=== PATIENT | male | born 1960 | race Caucasian/White ===

== ENCOUNTER 2018-08-22 10:50 | Inpatient (IN) | payer BC ==
[2018-08-22] MEDS ORDERED: ACETAMINOPHEN 1000 MG/100 ML VIAL (NON FORMULARY) IVPB ONE (11:07)
[2018-08-22] MEDS ORDERED: SODIUM CHLORIDE 0.9% 1000 ML INFUS.BAG IV ONE (11:07)
[2018-08-22 11:14] VITALS: BMI 31.7
--- NOTE | 2018-08-22 11:19 | PDOC ---
Attending Attestation - Resident Resident Name: Raji Jolly - ED Attending Attestation I have performed the following: I have examined & evaluated the patient, The case was reviewed & discussed with the resident, I agree w/resident's findings & plan, Exceptions are as noted - HPI HPI: 08/22/18 12:04 58yo male with lower abd pain. Pt states last bm was this am, but pain since. Pt denies assoc f/c. No assoc n/v. States pain across lower abd that worsened when drinking water today. Pt denies cp/sob. States he had similar pain that lasted a few days about a month ago. Denies blood in stool. Denies urinary complaints. Saw his PMD who recommended he undergo a colonoscopy as an outpt. Pt states pain today while at work. Pt with severe LLQ pain with guarding on exam. Pt appears uncomfortable. States he did have a colonoscopy in the past that was "normal". Pt denies all other complaints. - Physicial Exam PE: 08/22/18 12:07 Gen: aaox3, uncomfortable heart: +s1s2 reg lungs: cta b/l abd: soft, LLQ ttp with voluntary guarding, mild RLQ ttp ext: no c/c/e - Medical Decision Making 08/22/18 11:19 I, Dr. Theresa Heaton, DO, attest that this document has been prepared under my direction and personally reviewed by me in its entirety. I further attest, that it accurately reflects all work, treatment, procedures and medical decision -making performed by me. 08/22/18 12:08 a/p: 58yo male with intermittent LLQ pain - worsened today after drinking water -had a bm today -concern for acute diverticulitis -will send labs, ct abd/pelvis -will give ivf hydration, npo, iv tylenol for pain -will monitor and reassess 08/22/18 12:22 [address]bc [address] imaging 08/22/18 14:01 pt with acute diverticulitis with perf zosyn ordered pt updated microblog sent to [facility] for admission call placed to Dr. Power for sx eval 08/22/18 14:39 resident discussed the case with Dr. Bennett case was discussed with Yoli Mckinney from [facility] who accepts pt to service pt will admitted for iv abx and further eval *DC/Admit/Observation/Transfer Diagnosis at time of Disposition: Acute diverticulitis of intestine - Discharge Dispostion Condition at time of disposition: Guarded Decision to Admit order: Yes - Referrals Referrals: Yudy Sheridan MD [Primary Care Provider] - - Patient Instructions - Post Discharge Activity
[2018-08-22] MEDS ORDERED: ACETAMINOPHEN INJECTION 100 ML IVPB ONE (11:37)
--- NOTE | 2018-08-22 11:42 | PDOC ---
History of Present Illness - General Chief Complaint: Pain Stated Complaint: ABDOMINAL PAIN Time Seen by Provider: 08/22/18 10:57 History Source: Patient Exam Limitations: No Limitations - History of Present Illness Initial Comments: 08/22/18 11:32 58M with PMH of HTN and HLD who presents with 24 hours of abdominal pain. The patient describes a gradual onset, pressure-throbbing, lower abdominal pain without nausea, vomiting, diarrhea, constipation, melena, hematochezia, testicular pain, dysuria, or discharge. He admits to chills and sweats. He denies any relation to food. He states that the pain was tolerable last night, but he felt very thirsty today, drank a "big" glass of water, and immediately had worsening pain so he presented to the ED. Pt admits to having similar symptoms a month ago which he did not see a physician for and self-resolved. Past History - Past Medical History Allergies/Adverse Reactions: Allergies Allergy/AdvReac Type Severity Reaction Status Date / Time No Known Allergies Allergy Verified 09/01/15 16:57 Home Medications: Ambulatory Orders Atorvastatin Ca [Lipitor] 20 mg PO HS 08/22/18 Chlorthalidone [Hygroton -] 25 mg PO DAILY 08/22/18 Valsartan [Diovan] 160 mg PO DAILY 08/22/18 COPD: No HTN: Yes Hypercholesterolemia: Yes - Suicide/Smoking/Psychosocial Hx Smoking History: Never smoked Have you smoked in the past 12 months: Yes Number of Cigarettes Smoked Daily: 10 'Breaking Loose' booklet given: 09/01/15 Hx Alcohol Use: Yes (OCCASIONAL) Drug/Substance Use Hx: No Substance Use Type: None Review of Systems - Review of Systems Able to Perform ROS?: Yes Comments:: 08/22/18 11:42 GENERAL/CONSTITUTIONAL: No fever or chills. No weakness. HEAD, EYES, EARS, NOSE AND THROAT: No change in vision. No ear pain or discharge. No sore throat. CARDIOVASCULAR: No chest pain, palpitations, or lightheadedness. RESPIRATORY: No cough, wheezing, shortness of breath, or hemoptysis. GASTROINTESTINAL: + for abdominal pain. No nausea, vomiting, diarrhea, or constipation. GENITOURINARY: No dysuria, frequency, hematuria, or change in urination. MUSCULOSKELETAL: No joint or muscle swelling or pain. No neck or back pain. SKIN: No rash or lesions. NEUROLOGIC: No headache, numbness, tingling, focal weakness, loss of consciousness, or change in strength/sensation. Is the patient limited Mongolian proficient: No *Physical Exam - Vital Signs Last Vital Signs Temp Pulse Resp BP Pulse Ox 98.7 F 72 16 122/74 97 08/22/18 10:56 08/22/18 10:56 08/22/18 10:56 08/22/18 10:56 08/22/18 10:56 - Physical Exam Comments: 08/22/18 11:43 GENERAL: Well developed, well nourished. Awake and alert. No acute distress. HEENT: Normocephalic, atraumatic. Hearing grossly normal. Moist mucous membranes. PERRLA, EOMI. No conjunctival pallor. Sclera are non-icteric. NECK: Supple. Full ROM. No JVD. CARDIOVASCULAR: Regular rate and rhythm. No murmurs, rubs, or gallops. PULMONARY: No evidence of respiratory distress. Lungs clear to auscultation bilaterally. No wheezing, rales or rhonchi. ABDOMINAL: Soft. TTP over b/l lower quadrants with guarding in LLQ. Non- distended. MUSCULOSKELETAL: Normal range of motion at all joints. No bony deformities or tenderness. EXTREMITIES: No cyanosis. No clubbing. No edema. No calf tenderness or swelling. SKIN: Warm and dry. Normal capillary refill. No rashes. No jaundice. NEUROLOGICAL: Alert, awake, appropriate. Cranial nerves 2-12 grossly intact. Normal speech. Gait is normal without ataxia. PSYCHIATRIC: Cooperative. Good eye contact. Appropriate mood and affect. ED Treatment Course - LABORATORY CBC & Chemistry Diagram: 08/22/18 11:10 08/22/18 11:10 - RADIOLOGY Radiology Studies Ordered: Category Date Time Status ABDOMEN & PELVIS CT WITH CONTR [CT] Stat CT Scan 08/22/18 11:07 Ordered Medical Decision Making - Medical Decision Making 08/22/18 11:50 58M with PMH of HTN and HLD who presents with lower quadrant abdominal pain, chills, and sweats, concerning for infectious GI pathology such as diverticulitis. Will give pain medication and IV fluids for hydration and NPO until after CT+. Pending labs and imaging. 08/22/18 14:00 CT shows diverticulitis w/ microperforations w/o abscess. Dr. Power paged. Hospitalist paged for admission. Giving zosyn for abx coverage. 08/22/18 14:24 Case d/w Dr. Bennett who agrees w/ plan. 08/22/18 15:17 Pt endorsed to [facility] for admission. *DC/Admit/Observation/Transfer Diagnosis at time of Disposition: Acute diverticulitis of intestine - Discharge Dispostion Condition at time of disposition: Guarded Decision to Admit order: Yes - Referrals - Patient Instructions - Post Discharge Activity
[2018-08-22 12:01] LABS: BASO % 0.5 % (0-2.0); EOS % 0.4 % (0-4.5); HEMATOCRIT 45.9 % (35.4-49); HEMOGLOBIN 15.8 GM/dl (11.7-16.9); LYMPH % 11.8 % (8-40); MCH 29.9 pg (25.7-33.7); MCHC 34.3 g/dl (32.0-35.9); MEAN CELL VOLUME 86.9 fl (80-96); MEAN PLT VOLUME 8.5 fl (7.5-11.1); MONO % 6.5 % (3.8-10.2); NEUT % 80.8 % (42.8-82.8); PLATELET COUNT 273 K/MM3 (134-434); RBC 5.28 M/mm3 (4.00-5.60); RDW 12.7 % (11.9-15.9); WHITE BLOOD COUNT 13.7 K/mm3 (4.0-10.8)
[2018-08-22 12:04] LABS: INR 1.18 (0.82-1.09); PROTHROMBIN TIME (PATIENT) 13.2 SEC (10.2-13.0)
[2018-08-22 12:07] LABS: ALBUMIN 4.2 g/dl (3.4-5.0); ALK PHOS 91 U/L (45-117); ANION GAP 15 MMOL/L (8-16); BILIRUBIN,TOTAL 1.6 mg/dl (0.2-1); BLOOD UREA NITROGEN 11 mg/dl (7-18); CALCIUM 9.3 mg/dl (8.5-10); CHLORIDE 94 mmol/L (98-107); CO2 27 mmol/L (21-32); GLUCOSE,RANDOM 132 mg/dl (74-106); SGOT/AST 27 U/L (15-37); SGPT/ALT 38 U/L (13-61); SODIUM 136 mmol/L (136-145)
[2018-08-22 12:13] LABS: POTASSIUM 2.9 mmol/L (3.5-5.1)
[2018-08-22] MEDS ORDERED: KCL 10 MEQ IVPB 10 MEQ/100 ML INFUS.BAG IVPB ONE ×3 (12:55→14:54)
[2018-08-22 13:02] LABS: LIPASE 129 U/L (73-393)
[2018-08-22] MEDS: KCL 10 MEQ IVPB 10 MEQ/100 ML INFUS.BAG IVPB SCH ×2 (13:10→14:05)
[2018-08-22] MEDS ORDERED: PIPERACILLIN/TAZOB 3.375 GM 3.375 GM in DEXTROSE 5%-WATER - 50 ML IVPB ONE (13:57)
[2018-08-22] MEDS ORDERED: PIPERACILLIN/TAZOBACTAM 3.375 GM VIAL IVPB ONE ×3 (14:04→17:12)
--- NOTE | 2018-08-22 14:39 | HP ---
CHIEF COMPLAINT: Abdominal pain PCP: Dr. Sheridan, [facility] HISTORY OF PRESENT ILLNESS: 58 year-old male with a PMH significant for HTN and HLD, who presents to the ED with lower abdominal pain, sweats, and chills x 24 hours. The onset of pain was gradual. He ate very little yesterday and the pain was tolerable. Today he felt thirsty and drank a large glass of water. The pain became acutely worse, he fell to his hands and knees the pain was so severe. He drove himself to the ED. Patient recalls feeling similar abdominal pain about 3 weeks ago. The pain went away and he did not seek medical attention at the time. Patient reports being constipated for the past 10 days and he has been straining to have bowel movements. His stools have been brown, well-formed, no diarrhea. Last colonoscopy was a number of years ago. ER course was notable for: (1) WBC 13.7k (2) K 2.9 (3) Total bili 1.6 (4) CTAP: pneumoperitoneum; acute diverticulitis of sigmoid; no abscess seen Recent Travel: No PAST MEDICAL HISTORY: Hypertension Hyperlipidemia PAST SURGICAL HISTORY: None reported Social History: Smoking: Alcohol: Drugs: Family History: Allergies No Known Allergies Allergy (Verified 09/01/15 16:57) HOME MEDICATIONS: Home Medications Medication Instructions Recorded Atorvastatin Ca [Lipitor] 20 mg PO HS 08/22/18 Chlorthalidone [Hygroton -] 25 mg PO DAILY 08/22/18 Valsartan [Diovan] 160 mg PO DAILY 08/22/18 REVIEW OF SYSTEMS CONSTITUTIONAL: +sweats, chills Absent: fever, chills, diaphoresis, generalized weakness, malaise, loss of appetite, weight change HEENT: Absent: rhinorrhea, nasal congestion, throat pain, throat swelling, difficulty swallowing, mouth swelling, ear pain, eye pain, visual changes CARDIOVASCULAR: Absent: chest pain, syncope, palpitations, irregular heart rate, lightheadedness , peripheral edema RESPIRATORY: Absent: cough, shortness of breath, dyspnea with exertion, orthopnea, wheezing, stridor, hemoptysis GASTROINTESTINAL: +abdominal pain L>R, constipation Absent: abdominal pain, abdominal distension, nausea, vomiting, diarrhea, constipation, melena, hematochezia GENITOURINARY: Absent: dysuria, frequency, urgency, hesitancy, hematuria, flank pain, genital pain MUSCULOSKELETAL: Absent: myalgia, arthralgia, joint swelling, back pain, neck pain SKIN: Absent: rash, itching, pallor HEMATOLOGIC/IMMUNOLOGIC: Absent: easy bleeding, easy bruising, lymphadenopathy, frequent infections ENDOCRINE: Absent: unexplained weight gain, unexplained weight loss, heat intolerance, cold intolerance NEUROLOGIC: Absent: headache, focal weakness or paresthesias, dizziness, unsteady gait, seizure, mental status changes, bladder or bowel incontinence PSYCHIATRIC: Absent: anxiety, depression, suicidal or homicidal ideation, hallucinations. PHYSICAL EXAMINATION Vital Signs - 24 hr 08/22/18 10:56 Temperature 98.7 F Pulse Rate 72 Respiratory 16 Rate Blood Pressure 122/74 O2 Sat by Pulse 97 Oximetry (%) GENERAL: Awake, alert, and fully oriented, in no acute distress. HEAD: Normal with no signs of trauma. EYES: Pupils equal, round and reactive to light, extraocular movements intact, sclera anicteric, conjunctiva clear. No lid lag. EARS, NOSE, THROAT: Ears normal, nares patent, oropharynx clear without exudates. Moist mucous membranes. NECK: Normal range of motion, supple without lymphadenopathy, JVD, or masses. LUNGS: Breath sounds equal, clear to auscultation bilaterally. No wheezes, and no crackles. No accessory muscle use. HEART: Regular rate and rhythm, normal S1 and S2 ABDOMEN: Soft, lower abdomen diffusely tender L>R; normoactive bowel sounds, no guarding, no rebound tenderness UPPER EXTREMITIES: 2+ pulses, warm, well-perfused. No cyanosis. No clubbing. No peripheral edema. LOWER EXTREMITIES: 2+ pulses, warm, well-perfused. No calf tenderness. No peripheral edema. NEUROLOGICAL: Cranial nerves II-XII intact. Normal speech. Normal gait. Laboratory Results - last 24 hr 08/22/18 08/22/18 08/22/18 11:10 11:10 11:10 WBC 13.7 H RBC 5.28 Hgb 15.8 Hct 45.9 MCV 86.9 MCH 29.9 MCHC 34.3 RDW 12.7 Plt Count 273 MPV 8.5 Absolute Neuts (auto) 11.0 Neutrophils % 80.8 Lymphocytes % 11.8 Monocytes % 6.5 Eosinophils % 0.4 Basophils % 0.5 PT with INR 13.2 H INR 1.18 Sodium 136 Potassium 2.9 L* Chloride 94 L Carbon Dioxide 27 Anion Gap 15 BUN 11 Creatinine 1.0 Creat Clearance w eGFR 76.48 Random Glucose 132 H Calcium 9.3 Total Bilirubin 1.6 H AST 27 ALT 38 Alkaline Phosphatase 91 Total Protein 7.0 Albumin 4.2 Lipase 129 Blood Type Antibody Screen 08/22/18 08/22/18 11:10 11:40 WBC RBC Hgb Hct MCV MCH MCHC RDW Plt Count MPV Absolute Neuts (auto) Neutrophils % Lymphocytes % Monocytes % Eosinophils % Basophils % PT with INR INR Sodium Potassium Chloride Carbon Dioxide Anion Gap BUN Creatinine Creat Clearance w eGFR Random Glucose Calcium Total Bilirubin AST ALT Alkaline Phosphatase Total Protein Albumin Lipase Blood Type O POSITIVE O POSITIVE Antibody Screen Negative ASSESSMENT/PLAN 58 year-old male with a PMH significant for HTN and HLD. Admitted for acute sigmoid diverticulitis with pneumoperitoneum. Acute diverticulitis with pneumoperitoneum --5/6 CTAP: small amount of free air under diaphragm; acute diverticulitis of sigmoid, small air bubbles seen, no abscess seen; hepatomegaly; splenomegaly ; cholelithiasis --afebrile, +leukocytosis --Zosyn started, ID consult requested --seen and evaluated by surgeon Dr. Clark Hypertension --hold valsartan, chlorthalidone while NPO --hydralazine 10mg q6h scheduled with hold parameters SBP<110 or DBP <70 Hyperlipidemia --hold statin while NPO Hypokalemia --3 runs K given in ED --IV fluids with 20meqK Hypomagnesemia --replete; goal Mg>2.0 FEN Fluids: D5NS+20K@100mL/hr Electrolytes: replete as indicated Nutrition: strict NPO DVT prophylaxis: SCDs, oob, ambulation; hold chemical prophylaxis for possible surgery Dispo: continues to require inpatient care. Full code. Visit type - Emergency Visit Emergency Visit: Yes ED Registration Date: 08/22/18 Care time: The patient presented to the Emergency Department on the above date and was hospitalized for further evaluation of their emergent condition. - New Patient This patient is new to me today: Yes Date on this admission: 08/22/18 - Critical Care Critical Care patient: No
--- NOTE | 2018-08-22 15:26 | CONSULT ---
Consult Consult Specialty:: General Surgery Reason for Consultation:: Acute Diverticulitis - History of Present Illness Chief Complaint: abdominal pain History of Present Illness: 58yo male PMH obesity, HTN and HLD presented to the ED complaining of lower abdominal pain. He reports that his last BM was this morning although he has been having recent bouts of constipation. His abdominal has beeen worsening over the past three days. No nausea or vomiting, no fever or chills. States pain started across lower abdomen that worsened when drinking water today. States he had similar pain that lasted a few days about a month ago. Denies blood in stool. Denies urinary complaints. Saw his PMD who recommended he undergo a colonoscopy as an outpatient. we were called to assess. - History Source History Provided By: Patient, Medical Record Limitations to Obtaining History: No Limitations - Past Medical History Cardio/Vascular: Yes: HTN, Hyperlipdemia Additional Medical History: obesity - Alcohol/Substance Use Hx Alcohol Use: Yes (OCCASIONAL) - Smoking History Smoking history: Never smoked Have you smoked in the past 12 months: Yes Aproximately how many cigarettes per day: 10 Home Medications - Allergies Allergies/Adverse Reactions: Allergies Allergy/AdvReac Type Severity Reaction Status Date / Time No Known Allergies Allergy Verified 09/01/15 16:57 - Home Medications Home Medications: Ambulatory Orders Atorvastatin Ca [Lipitor] 20 mg PO HS 08/22/18 Chlorthalidone [Hygroton -] 25 mg PO DAILY 08/22/18 Valsartan [Diovan] 160 mg PO DAILY 08/22/18 Review of Systems - Review of Systems Constitutional: denies: Chills, Fever Eyes: denies: Blind Spots, Double Vision HENT: denies: Difficult Swallowing, Ear Discharge, Mouth Swelling Neck: denies: Decreased ROM, Pain on Movement Cardiovascular: denies: Chest Pain, Palpitations Respiratory: denies: Cough, SOB Gastrointestinal: reports: Abdominal Pain, Constipation Genitourinary: denies: Burning, Discharge, Testicular Pain Breasts: reports: No Symptoms Reported. denies: Pain Musculoskeletal: denies: Back Pain, Muscle Pain, Muscle Cramps Integumentary: denies: Bruising, Lesions, Lump Neurological: denies: Change in LOC, Seizure, Syncope Endocrine: denies: Excessive Sweating, Unexplained Weight Gain, Unexplained Weight Loss Hematology/Lymphatic: reports: Excessive Bleeding. denies: Easily Bruised Physical Exam Vital Signs: Vital Signs Temperature 98.7 F 08/22/18 10:56 Pulse Rate 72 08/22/18 10:56 Respiratory Rate 16 08/22/18 10:56 Blood Pressure 122/74 08/22/18 10:56 O2 Sat by Pulse Oximetry (%) 97 08/22/18 10:56 Constitutional: Yes: Well Nourished, No Distress, Calm, Obese Eyes: Yes: Conjunctiva Clear, EOM Intact HENT: Yes: Atraumatic, Normocephalic Neck: Yes: Supple, Trachea Midline Cardiovascular: Yes: Regular Rate and Rhythm, S1, S2 Respiratory: Yes: Regular, CTA Bilaterally Gastrointestinal: Yes: Normal Bowel Sounds, Soft, Abdomen, Obese, Tenderness ( LLQ focal with mild rebound, no colin), Tenderness, Rebound. No: Hernia, Palpable Mass ...Rectal Exam: Yes: Sphincter Tone Normal. No: Hemorrhoids/External, Hemorrhoids/Internal, Mass Renal/: No: CVA Tenderness - Left, CVA Tenderness - Right Musculoskeletal: No: Muscle Pain, Muscle Weakness Extremities: No: Cool, Cyanosis Edema: No Peripheral Pulses WNL: Yes Integumentary: No: Jaundice, Rash, Skin Tear Neurological: Yes: Alert, Oriented Psychiatric: Yes: Alert, Oriented Labs: CBC, BMP 08/22/18 11:10 08/22/18 11:10 Imaging - Results Cat Scan: Report Reviewed, Image Reviewed (sigmoid diverticulitis) Problem List - Problems (1) Acute diverticulitis of intestine Assessment/Plan: 58 yo male with his first epidsode of acute diverticulits requiring hospitalization NPO and IVF hydration IV antibiotics per ID resume diet gradually as his abdominal pain resolves GI for colonoscopy in 8 week f/u in surgery clinic to discuss elective colectomy after colonoscopy Thank you for the opportunity to participate in the care of this patient. Code(s): K57.92 - DVTRCLI OF INTEST, PART UNSP, W/O PERF OR ABSCESS W/O BLEED (2) Obesity (BMI 30.0-34.9) Code(s): E66.9 - OBESITY, UNSPECIFIED (3) HTN (hypertension) Code(s): I10 - ESSENTIAL (PRIMARY) HYPERTENSION (4) HLD (hyperlipidemia) Code(s): E78.5 - HYPERLIPIDEMIA, UNSPECIFIED
--- NOTE | 2018-08-22 16:01 | CON.ID ---
Consult Consult Specialty:: infectious diseases Referred by:: hospitalist Reason for Consultation:: abd pain ,diverticulitis - History of Present Illness Chief Complaint: abd pain History of Present Illness: 58yo male PMH obesity, HTN and HLD presented to the ED complaining of lower abdominal pain. He reports that his last BM was this morning although he has been having recent bouts of constipation. His abdominal has beeen worsening over the past three days. No nausea or vomiting, no fever or chills. States pain started across lower abdomen that worsened when drinking water today. States he had similar pain that lasted a few days about a month ago. Denies blood in stool. Denies urinary complaints. Saw his PMD who recommended he undergo a colonoscopy as an outpatient - History Source History Provided By: Patient Limitations to Obtaining History: No Limitations - Alcohol/Substance Use Hx Alcohol Use: Yes (OCCASIONAL) - Smoking History Smoking history: Never smoked Have you smoked in the past 12 months: Yes Aproximately how many cigarettes per day: 10 Home Medications - Allergies Allergies/Adverse Reactions: Allergies Allergy/AdvReac Type Severity Reaction Status Date / Time No Known Allergies Allergy Verified 09/01/15 16:57 - Home Medications Home Medications: Ambulatory Orders RX: Atorvastatin Ca [Lipitor] 20 mg PO HS 08/22/18 RX: Valsartan [Diovan] 160 mg PO DAILY 08/22/18 Amoxicillin/Potassium Clav [Augmentin 875-125 Tablet] 1 each PO BID #20 tablet 08/26/18 Review of Systems - Review of Systems Constitutional: reports: No Symptoms Eyes: reports: No Symptoms HENT: reports: No Symptoms Neck: reports: No Symptoms Cardiovascular: reports: No Symptoms Respiratory: reports: No Symptoms Gastrointestinal: reports: Abdominal Pain, Diarrhea Genitourinary: reports: No Symptoms Musculoskeletal: reports: No Symptoms Integumentary: reports: No Symptoms Neurological: reports: No Symptoms Endocrine: reports: No Symptoms Hematology/Lymphatic: reports: No Symptoms Psychiatric: reports: No Symptoms Physical Exam Vital Signs: Vital Signs Temperature 99.2 F 08/22/18 15:54 Pulse Rate 75 08/22/18 15:54 Respiratory Rate 18 08/22/18 15:54 Blood Pressure 146/81 08/22/18 15:54 O2 Sat by Pulse Oximetry (%) 95 08/22/18 15:54 Constitutional: Yes: Well Nourished, Mild Distress, Obese Eyes: Yes: Conjunctiva Clear Cardiovascular: Yes: Regular Rate and Rhythm Respiratory: Yes: Regular, CTA Bilaterally Gastrointestinal: Yes: Soft, Hypoactive Bowel Sounds, Tenderness Extremities: Yes: WNL Neurological: Yes: Alert, Oriented Psychiatric: Yes: Alert, Oriented Labs: CBC, BMP 08/22/18 11:10 08/22/18 11:10 Imaging - Results Chest X-ray: Report Reviewed, Image Reviewed Cat Scan: Report Reviewed, Image Reviewed Assessment/Plan Problem List - Problems (1) Acute diverticulitis of intestine Code(s): K57.92 - DVTRCLI OF INTEST, PART UNSP, W/O PERF OR ABSCESS W/O BLEED (2) Obesity (BMI 30.0-34.9) Code(s): E66.9 - OBESITY, UNSPECIFIED (3) HTN (hypertension) Code(s): I10 - ESSENTIAL (PRIMARY) HYPERTENSION (4) HLD (hyperlipidemia) Code(s): E78.5 - HYPERLIPIDEMIA, UNSPECIFIED plan continue abx npo guarding monitor wbc close watch rest as per the team
[2018-08-22] MEDS ORDERED: D5-NS + 20 MEQ KCL - 20 MEQ/1,000 ML INFUS.BAG IV SCH (16:15)
[2018-08-22] MEDS ORDERED: DEXTROSE 5%-WATER - 50 ML IVPB ONE (17:11)
[2018-08-22] MEDS: PIPERACILLIN/TAZOB 3.375 GM 3.375 GM in DEXTROSE 5%-WATER - 50 ML IVPB SCH (17:13)
[2018-08-22] MEDS ORDERED: MAGNESIUM SULF 50% (8.12 MEQ/2 ML-1 GM VIAL) IVPB ONE (17:28)
[2018-08-22] MEDS ORDERED: hydrALAZINE HCL 20 MG/ML VIAL IVPUSH SCH (17:30)
[2018-08-22] MEDS ORDERED: hydrALAZINE HCL 20 MG/ML VIAL ONE (17:43)
[2018-08-22] MEDS ORDERED: ACETAMINOPHEN 1000 MG/100 ML VIAL (NON FORMULARY) IVPB PRN ×2 (19:07→19:23)
[2018-08-22] MEDS ORDERED: morphine CARPU-JECT 2 MG/1 ML DISP.SYRIN IVPUSH PRN ×2 (19:08→19:12)
[2018-08-22] MEDS ORDERED: SODIUM CHLORIDE 1,000 ML IV STA ×2 (19:26→20:30)
--- NOTE | 2018-08-22 19:35 | HOSP ---
Subjective - Review of Symptoms Events since last encounter: Advised patient febrile to 101. Together with WBC >13k and documented diverticulitis with microperforation, meets sepsis criteria. Lactic acid ordered stat. Earlier received NS x 1L in ED. Give another 2L of NS now for adequate sepsis resuscitation. Hold all anti-hypertensives. Continue Zosyn. Physical Examination Vital Signs: Vital Signs Temperature 99.2 F 08/22/18 15:54 Pulse Rate 73 08/22/18 18:30 Respiratory Rate 18 08/22/18 18:30 Blood Pressure 107/68 08/22/18 18:30 O2 Sat by Pulse Oximetry (%) 99 08/22/18 18:30 Labs: CBC, BMP 08/22/18 11:10 08/22/18 11:10
[2018-08-22] MEDS ORDERED: SODIUM CHLORIDE 1,000 ML IV SCH (21:30)
[2018-08-22] MEDS ORDERED: hydrALAZINE HCL 20 MG/ML VIAL IVPUSH PRN (23:30)
[2018-08-23] MEDS: PIPERACILLIN/TAZOB 3.375 GM 3.375 GM in DEXTROSE 5%-WATER - 50 ML IVPB SCH ×3 (02:00→18:04)
[2018-08-23] MEDS ORDERED: DEXTROSE 5%-WATER - 50 ML IVPB ONE ×3 (03:12→17:48)
[2018-08-23] MEDS ORDERED: PIPERACILLIN/TAZOBACTAM 3.375 GM VIAL IVPB ONE ×3 (03:12→17:48)
[2018-08-23 08:49] LABS: BASO % 0.3 % (0-2.0); EOS % 1.4 % (0-4.5); HEMATOCRIT 39.8 % (35.4-49); HEMOGLOBIN 13.4 GM/dl (11.7-16.9); LYMPH % 16.7 % (8-40); MCH 29.2 pg (25.7-33.7); MCHC 33.7 g/dl (32.0-35.9); MEAN CELL VOLUME 86.8 fl (80-96); MEAN PLT VOLUME 8.7 fl (7.5-11.1); NEUT % 73.6 % (42.8-82.8); PLATELET COUNT 216 K/MM3 (134-434); RBC 4.58 M/mm3 (4.00-5.60); RDW 12.5 % (11.9-15.9); WHITE BLOOD COUNT 10.9 K/mm3 (4.0-10.8)
[2018-08-23 08:54] LABS: ANION GAP 9 MMOL/L (8-16); BLOOD UREA NITROGEN 9 mg/dl (7-18); CALCIUM 8.3 mg/dl (8.5-10); CHLORIDE 104 mmol/L (98-107); CO2 27 mmol/L (21-32); GLUCOSE,RANDOM 105 mg/dl (74-106); MAGNESIUM 2.1 mg/dL (1.8-2.4); SODIUM 140 mmol/L (136-145)
[2018-08-23 08:57] LABS: POTASSIUM 2.9 mmol/L (3.5-5.1)
[2018-08-23] MEDS: KCL 10 MEQ IVPB 10 MEQ/100 ML INFUS.BAG IVPB ONE ×2 (09:00→10:36)
[2018-08-23] MEDS: KCL 10 MEQ IVPB 10 MEQ/100 ML INFUS.BAG IVPB SCH ×4 (10:30→12:59)
--- NOTE | 2018-08-23 11:02 | PN ---
Physical Exam: SUBJECTIVE: Patient seen and examined at bedside. Abdominal pain is much better. No BM. OBJECTIVE: Vital Signs Period Temp Pulse Resp BP Sys/Schmidt Pulse Ox Last 24 Hr 98.1 F-100.1 F 73-75 16-18 107-146/61-81 95-99 GENERAL: Awake, alert, and fully oriented, in no acute distress. LUNGS: Breath sounds equal, clear to auscultation bilaterally. No wheezes, and no crackles. No accessory muscle use. HEART: Regular rate and rhythm, normal S1 and S2 ABDOMEN: Soft, no tenderness today, normoactive bowel sounds, no guarding, no rebound tenderness UPPER EXTREMITIES: 2+ pulses, warm, well-perfused. No cyanosis. No clubbing. No peripheral edema. LOWER EXTREMITIES: 2+ pulses, warm, well-perfused. No calf tenderness. No peripheral edema. NEUROLOGICAL: Cranial nerves II-XII intact. Normal speech. Normal gait. Laboratory Results - last 24 hr 08/22/18 08/22/18 08/22/18 11:10 11:10 11:10 WBC 13.7 H RBC 5.28 Hgb 15.8 Hct 45.9 MCV 86.9 MCH 29.9 MCHC 34.3 RDW 12.7 Plt Count 273 MPV 8.5 Absolute Neuts (auto) 11.0 Neutrophils % 80.8 Lymphocytes % 11.8 Monocytes % 6.5 Eosinophils % 0.4 Basophils % 0.5 PT with INR 13.2 H INR 1.18 Sodium 136 Potassium 2.9 L* Chloride 94 L Carbon Dioxide 27 Anion Gap 15 BUN 11 Creatinine 1.0 Creat Clearance w eGFR 76.48 Random Glucose 132 H Lactic Acid Calcium 9.3 Magnesium Total Bilirubin 1.6 H AST 27 ALT 38 Alkaline Phosphatase 91 Total Protein 7.0 Albumin 4.2 Lipase 129 Urine Color Urine Appearance Urine pH Urine Protein Urine Glucose (UA) Urine Ketones Urine Blood Urine Nitrite Urine Bilirubin Urine Urobilinogen Ur Leukocyte Esterase Urine RBC Urine WBC Blood Type Antibody Screen 08/22/18 08/22/18 08/22/18 11:10 11:40 14:40 WBC RBC Hgb Hct MCV MCH MCHC RDW Plt Count MPV Absolute Neuts (auto) Neutrophils % Lymphocytes % Monocytes % Eosinophils % Basophils % PT with INR INR Sodium Potassium Chloride Carbon Dioxide Anion Gap BUN Creatinine Creat Clearance w eGFR Random Glucose Lactic Acid Calcium Magnesium Total Bilirubin AST ALT Alkaline Phosphatase Total Protein Albumin Lipase Urine Color Yellow Urine Appearance Clear Urine pH 7.0 Urine Protein Negative Urine Glucose (UA) Negative Urine Ketones Negative Urine Blood Negative Urine Nitrite Negative Urine Bilirubin Negative Urine Urobilinogen 0.2 Ur Leukocyte Esterase Negative Urine RBC Urine WBC Blood Type O POSITIVE O POSITIVE Antibody Screen Negative 08/22/18 08/22/18 08/22/18 16:00 17:00 19:50 WBC RBC Hgb Hct MCV MCH MCHC RDW Plt Count MPV Absolute Neuts (auto) Neutrophils % Lymphocytes % Monocytes % Eosinophils % Basophils % PT with INR INR Sodium Potassium Chloride Carbon Dioxide Anion Gap BUN Creatinine Creat Clearance w eGFR Random Glucose Lactic Acid 1.6 Calcium Magnesium 1.8 Total Bilirubin AST ALT Alkaline Phosphatase Total Protein Albumin Lipase Urine Color Yellow Urine Appearance Clear Urine pH 7.0 Urine Protein Negative Urine Glucose (UA) Negative Urine Ketones Negative Urine Blood Trace-lysed Urine Nitrite Negative Urine Bilirubin Negative Urine Urobilinogen 0.2 Ur Leukocyte Esterase Negative Urine RBC 2-5 Urine WBC 0-2 Blood Type Antibody Screen 08/23/18 08/23/18 07:55 07:55 WBC 10.9 H RBC 4.58 Hgb 13.4 Hct 39.8 MCV 86.8 MCH 29.2 MCHC 33.7 RDW 12.5 Plt Count 216 D MPV 8.7 Absolute Neuts (auto) 8.0 Neutrophils % 73.6 Lymphocytes % 16.7 D Monocytes % 8.0 Eosinophils % 1.4 D Basophils % 0.3 PT with INR INR Sodium 140 Potassium 2.9 L* Chloride 104 Carbon Dioxide 27 Anion Gap 9 BUN 9 Creatinine 1.0 Creat Clearance w eGFR 76.48 Random Glucose 105 Lactic Acid Calcium 8.3 L Magnesium 2.1 Total Bilirubin AST ALT Alkaline Phosphatase Total Protein Albumin Lipase Urine Color Urine Appearance Urine pH Urine Protein Urine Glucose (UA) Urine Ketones Urine Blood Urine Nitrite Urine Bilirubin Urine Urobilinogen Ur Leukocyte Esterase Urine RBC Urine WBC Blood Type Antibody Screen Active Medications Generic Name Dose Route Start Last Admin Trade Name Freq PRN Reason Stop Dose Admin Acetaminophen 1,000 mg 08/22/18 19:12 Ofirmev Injection - IVPB Q8H PRN PAIN LEVEL 4 - 6 Piperacillin Sod/Tazobactam 50 mls @ 100 mls/hr 08/22/18 18:00 08/23/18 10:36 Sod 3.375 gm/ Dextrose IVPB 100 mls/hr Q8H-IV TALHA Administration Protocol Sodium Chloride 1,000 mls @ 83 mls/hr 08/22/18 21:30 08/23/18 00:00 Normal Saline - IV 83 mls/hr ASDIR TALHA Administration Potassium Chloride 10 meq in 100 mls @ 100 mls/hr 08/23/18 10:30 08/23/18 10: 37 Potassium Chloride 10 Meq Premix Ivpb - IVPB 08/23/18 13:29 Not Given Q60M TALHA Morphine Sulfate 1 mg 08/22/18 19:12 Morphine Injection - IVPUSH Q6H PRN PAIN LEVEL 7 - 10 ASSESSMENT/PLAN: 58 year-old male with a PMH significant for HTN and HLD. Admitted for acute sigmoid diverticulitis with pneumoperitoneum. Acute diverticulitis with pneumoperitoneum --5/6 CTAP: small amount of free air under diaphragm; acute diverticulitis of sigmoid, small air bubbles seen, no abscess seen; hepatomegaly; splenomegaly ; cholelithiasis --Tm 100.1, mild leukocytosis --pain much improved, no tenderness on exam --continue Zosyn (day #2) --seen and evaluated by surgeon Dr. Clark, no surgical intervention at this time Hypertension --BP has been stable with valsartan, chlorthalidone on hold --hydralazine 10mg q6h PRN with parameters Hyperlipidemia --hold statin while NPO Hypokalemia --2.9 again today --K x 4 runs --repeat bmp 5:00pm Hypomagnesemia --resolved FEN Fluids: NS@ 83mL/hr Electrolytes: replete as indicated Nutrition: strict NPO DVT prophylaxis: SCDs, oob, ambulation; hold chemical prophylaxis for possible surgery Dispo: continues to require inpatient care. Full code. Visit type - Emergency Visit Emergency Visit: Yes ED Registration Date: 08/22/18 Care time: The patient presented to the Emergency Department on the above date and was hospitalized for further evaluation of their emergent condition. - New Patient This patient is new to me today: No - Critical Care Critical Care patient: No
--- NOTE | 2018-08-23 13:00 | EKG ---
Test Reason : Blood Pressure : / mmHG Vent. Rate : 076 BPM Atrial Rate : 076 BPM P-R Int : 156 ms QRS Dur : 096 ms QT Int : 380 ms P-R-T Axes : 031 012 -03 degrees QTc Int : 427 ms NORMAL SINUS RHYTHM NORMAL ECG WHEN COMPARED WITH ECG OF 20-JUL-2008 09:18, INVERTED T WAVES HAVE REPLACED NONSPECIFIC T WAVE ABNORMALITY IN INFERIOR LEADS Confirmed by MD PHYLLIS, ANDI ([id number]) on 08/23/2018 1:00:02 PM Referred By: BLANCO WEISS Confirmed By:ANDI FERGUSON MD
[2018-08-23] MEDS: ACETAMINOPHEN 1000 MG/100 ML VIAL (NON FORMULARY) IVPB PRN (14:45)
--- NOTE | 2018-08-23 14:46 | PN ---
Progress Note, Physician History of Present Illness: feeling slightly better still with pain - Current Medication List Current Medications: Active Medications Acetaminophen (Ofirmev Injection -) 1,000 mg IVPB Q8H PRN PRN Reason: PAIN LEVEL 4 - 6 Piperacillin Sod/Tazobactam (Sod 3.375 gm/ Dextrose) 50 mls @ 100 mls/hr IVPB Q8H-IV TALHA; Protocol Last Admin: 08/23/18 10:36 Dose: 100 mls/hr Sodium Chloride (Normal Saline -) 1,000 mls @ 83 mls/hr IV ASDIR TALHA Last Admin: 08/23/18 00:00 Dose: 83 mls/hr Morphine Sulfate (Morphine Injection -) 1 mg IVPUSH Q6H PRN PRN Reason: PAIN LEVEL 7 - 10 - Objective Vital Signs: Vital Signs Temperature 99 F 08/23/18 10:00 Pulse Rate 72 08/23/18 10:00 Respiratory Rate 16 08/23/18 10:00 Blood Pressure 120/76 08/23/18 10:00 O2 Sat by Pulse Oximetry (%) 99 08/23/18 08:22 Constitutional: Yes: Calm, Mild Distress, Obese Cardiovascular: Yes: Regular Rate and Rhythm Respiratory: Yes: Regular, CTA Bilaterally Gastrointestinal: Yes: Tenderness, Other (absent bowel sounds) Musculoskeletal: Yes: WNL Extremities: Yes: WNL Neurological: Yes: Alert, Oriented Psychiatric: Yes: Alert, Oriented Labs: CBC, BMP 08/23/18 07:55 08/23/18 07:55 INR, PTT INR 1.18 (0.82-1.09) 08/22/18 11:10 Assessment/Plan Problem List - Problems (1) Acute diverticulitis of intestine Code(s): K57.92 - DVTRCLI OF INTEST, PART UNSP, W/O PERF OR ABSCESS W/O BLEED (2) Obesity (BMI 30.0-34.9) Code(s): E66.9 - OBESITY, UNSPECIFIED (3) HTN (hypertension) Code(s): I10 - ESSENTIAL (PRIMARY) HYPERTENSION (4) HLD (hyperlipidemia) Code(s): E78.5 - HYPERLIPIDEMIA, UNSPECIFIED plan continue abx continue npo monitor tenderness rest as per the team
[2018-08-23] MEDS ORDERED: hydrALAZINE HCL 20 MG/ML VIAL IVPUSH PRN (17:09)
[2018-08-23 19:10] LABS: ANION GAP 10 MMOL/L (8-16); BLOOD UREA NITROGEN 9 mg/dl (7-18); CALCIUM 8.3 mg/dl (8.5-10); CHLORIDE 102 mmol/L (98-107); CO2 27 mmol/L (21-32); GLUCOSE,RANDOM 89 mg/dl (74-106); SODIUM 139 mmol/L (136-145)
[2018-08-23 19:15] LABS: POTASSIUM 2.9 mmol/L (3.5-5.1)
[2018-08-23] MEDS: POTASSIUM CHLORIDE TABS 20 MEQ TABLET.ER (FP) PO SCH (20:25)
[2018-08-24] MEDS: POTASSIUM CHLORIDE TABS 20 MEQ TABLET.ER (FP) PO SCH ×2 (01:30→06:47)
[2018-08-24] MEDS ORDERED: DEXTROSE 5%-WATER - 50 ML IVPB ONE ×3 (02:53→17:03)
[2018-08-24] MEDS ORDERED: PIPERACILLIN/TAZOBACTAM 3.375 GM VIAL IVPB ONE ×3 (02:53→17:02)
[2018-08-24] MEDS: PIPERACILLIN/TAZOB 3.375 GM 3.375 GM in DEXTROSE 5%-WATER - 50 ML IVPB SCH ×3 (03:09→17:59)
[2018-08-24] MEDS ORDERED: PT OWN MED DRAWER 7, Y5N ONE (06:05)
--- NOTE | 2018-08-24 08:42 | PN ---
Physical Exam: SUBJECTIVE: Patient seen and examined. Sitting in chair fully dressed, wants to go home. Lengthy discussion about plan of care, urged patient to wait to see surgeon and to remain NPO until that time. Patient has had 3 painful diarrheal movements. OBJECTIVE: Vital Signs Period Temp Pulse Resp BP Sys/Schmidt Pulse Ox Last 24 Hr 99 F-99.8 F 65-72 16-18 120-143/69-76 95-97 GENERAL: Awake, alert, and fully oriented, in no acute distress. LUNGS: Breath sounds equal, clear to auscultation bilaterally. No wheezes, and no crackles. No accessory muscle use. HEART: Regular rate and rhythm, normal S1 and S2 ABDOMEN: Soft, no tenderness today, normoactive bowel sounds, no guarding, no rebound tenderness UPPER EXTREMITIES: 2+ pulses, warm, well-perfused. No cyanosis. No clubbing. No peripheral edema. LOWER EXTREMITIES: 2+ pulses, warm, well-perfused. No calf tenderness. No peripheral edema. NEUROLOGICAL: Cranial nerves II-XII intact. Normal speech. Normal gait. Laboratory Results - last 24 hr 08/23/18 08/23/18 08/23/18 07:55 07:55 17:25 WBC 10.9 H RBC 4.58 Hgb 13.4 Hct 39.8 MCV 86.8 MCH 29.2 MCHC 33.7 RDW 12.5 Plt Count 216 D MPV 8.7 Absolute Neuts (auto) 8.0 Neutrophils % 73.6 Lymphocytes % 16.7 D Monocytes % 8.0 Eosinophils % 1.4 D Basophils % 0.3 Sodium 140 139 Potassium 2.9 L* 2.9 L* Chloride 104 102 Carbon Dioxide 27 27 Anion Gap 9 10 BUN 9 9 Creatinine 1.0 1.0 Creat Clearance w eGFR 76.48 Est GFR (CKD-EPI)AfAm No Result Required. Est GFR (CKD-EPI)NonAf 82.02 Random Glucose 105 89 Calcium 8.3 L 8.3 L Magnesium 2.1 2.0 Active Medications Generic Name Dose Route Start Last Admin Trade Name Freq PRN Reason Stop Dose Admin Acetaminophen 1,000 mg 08/22/18 19:12 08/23/18 14:45 Ofirmev Injection - IVPB 1,000 mg Q8H PRN Administration PAIN LEVEL 4 - 6 Hydralazine HCl 10 mg 08/23/18 17:09 Apresoline Injection - IVPUSH Q6H PRN HYPERTENSION Piperacillin Sod/Tazobactam 50 mls @ 100 mls/hr 08/22/18 18:00 08/24/18 03:09 Sod 3.375 gm/ Dextrose IVPB 100 mls/hr Q8H-IV TALHA Administration Protocol Sodium Chloride 1,000 mls @ 83 mls/hr 08/22/18 21:30 08/23/18 00:00 Normal Saline - IV 83 mls/hr ASDIR TALHA Administration Morphine Sulfate 1 mg 08/22/18 19:12 Morphine Injection - IVPUSH Q6H PRN PAIN LEVEL 7 - 10 ASSESSMENT/PLAN 58 year-old male with a PMH significant for HTN and HLD. Admitted for acute sigmoid diverticulitis with pneumoperitoneum. Acute diverticulitis with pneumoperitoneum --5/6 CTAP: small amount of free air under diaphragm; acute diverticulitis of sigmoid, small air bubbles seen, no abscess seen; hepatomegaly; splenomegaly ; cholelithiasis --Tm 100.1, mild leukocytosis --pain much improved, no tenderness on exam --continue Zosyn (day #2) --seen and evaluated by surgeon Dr. Clark, no surgical intervention at this time Hypertension --BP has been stable with valsartan, chlorthalidone on hold --hydralazine 10mg q6h PRN with parameters Hyperlipidemia --hold statin while NPO Hypokalemia Hypomagnesemia --repleted FEN Fluids: D5NS+40K @ 125mL/hr Electrolytes: replete as indicated Nutrition: strict NPO DVT prophylaxis: SCDs, oob, ambulation; hold chemical prophylaxis for possible surgery Dispo: continues to require inpatient care. Full code. Visit type - Emergency Visit Emergency Visit: Yes ED Registration Date: 08/22/18 Care time: The patient presented to the Emergency Department on the above date and was hospitalized for further evaluation of their emergent condition. - New Patient This patient is new to me today: No - Critical Care Critical Care patient: No
[2018-08-24 08:50] LABS: BASO % 0.4 % (0-2.0); EOS % 2.8 % (0-4.5); HEMATOCRIT 40.2 % (35.4-49); HEMOGLOBIN 13.5 GM/dl (11.7-16.9); LYMPH % 18.8 % (8-40); MCH 29.1 pg (25.7-33.7); MCHC 33.6 g/dl (32.0-35.9); MEAN CELL VOLUME 86.6 fl (80-96); MEAN PLT VOLUME 8.8 fl (7.5-11.1); MONO % 9.6 % (3.8-10.2); NEUT % 68.4 % (42.8-82.8); PLATELET COUNT 227 K/MM3 (134-434); RBC 4.64 M/mm3 (4.00-5.60); RDW 12.5 % (11.9-15.9); WHITE BLOOD COUNT 9.7 K/mm3 (4.0-10.8)
[2018-08-24 09:12] LABS: ALBUMIN 3.3 g/dl (3.4-5.0); ALK PHOS 69 U/L (45-117); ANION GAP 8 MMOL/L (8-16); BILIRUBIN,TOTAL 1.1 mg/dl (0.2-1); BLOOD UREA NITROGEN 8 mg/dl (7-18); CALCIUM 8.6 mg/dl (8.5-10); CHLORIDE 105 mmol/L (98-107); CO2 28 mmol/L (21-32); GLUCOSE,RANDOM 106 mg/dl (74-106); POTASSIUM 3.5 mmol/L (3.5-5.1); SGOT/AST 18 U/L (15-37); SGPT/ALT 23 U/L (13-61); SODIUM 141 mmol/L (136-145); TOT PROT 6.2 g/dl (6.4-8.2)
--- NOTE | 2018-08-24 12:40 | PN ---
Progress Note, Physician Chief Complaint: abdominal pain History of Present Illness: 58yo male PMH obesity, HTN and HLD presented to the ED complaining of lower abdominal pain. He reports that his last BM was this morning although he has been having recent bouts of constipation. His abdominal has improved. He is tolerating clear liquids. - Current Medication List Current Medications: Active Medications Acetaminophen (Ofirmev Injection -) 1,000 mg IVPB Q8H PRN PRN Reason: PAIN LEVEL 4 - 6 Last Admin: 08/23/18 14:45 Dose: 1,000 mg Hydralazine HCl (Apresoline Injection -) 10 mg IVPUSH Q6H PRN PRN Reason: HYPERTENSION Piperacillin Sod/Tazobactam (Sod 3.375 gm/ Dextrose) 50 mls @ 100 mls/hr IVPB Q8H-IV TALHA; Protocol Last Admin: 08/24/18 09:58 Dose: 100 mls/hr Sodium Chloride (Normal Saline -) 1,000 mls @ 83 mls/hr IV ASDIR TALHA Last Admin: 08/23/18 00:00 Dose: 83 mls/hr Morphine Sulfate (Morphine Injection -) 1 mg IVPUSH Q6H PRN PRN Reason: PAIN LEVEL 7 - 10 - Objective Vital Signs: Vital Signs Temperature 99.0 F 08/24/18 09:55 Pulse Rate 58 L 08/24/18 09:55 Respiratory Rate 18 08/24/18 09:55 Blood Pressure 132/75 08/24/18 09:55 O2 Sat by Pulse Oximetry (%) 98 08/24/18 09:55 Constitutional: Yes: Well Nourished, No Distress, Calm, Obese Eyes: Yes: Conjunctiva Clear, EOM Intact HENT: Yes: Atraumatic, Normocephalic Neck: Yes: Supple, Trachea Midline Cardiovascular: Yes: Regular Rate and Rhythm, S1, S2 Respiratory: Yes: Regular, CTA Bilaterally Gastrointestinal: Yes: Normal Bowel Sounds, Soft, Abdomen, Obese, Tenderness ( LLQ improved from intial exam). No: Pulsatile Mass, Tenderness, Rebound ...Rectal Exam: Yes: Deferred Genitourinary: No: CVA Tenderness - Left, CVA Tenderness - Right Breast(s): No: Discharge from Nipple, Skin Changes Musculoskeletal: No: Muscle Pain, Muscle Weakness Extremities: No: Cool, Cyanosis Edema: No Peripheral Pulses WNL: Yes Peripheral Pulses: Left Radial: 2+, Right Radial: 2+, Left Doralis Pedis: 2+, Right Dorsalis Pedis: 2+, Left Femoral: 2+, Right Femoral: 2+ Integumentary: No: Jaundice, Skin Tear, Tattoos Neurological: Yes: Alert, Oriented Psychiatric: Yes: Alert, Oriented Labs: CBC, BMP 08/24/18 07:42 08/24/18 07:42 INR, PTT INR 1.18 (0.82-1.09) 08/22/18 11:10 Problem List - Problems (1) Acute diverticulitis of intestine Assessment/Plan: 58 yo male with his first epidsode of acute diverticulits requiring hospitalization. He does not require emergency surgical intervention. NPO and IVF hydration Clear liquids should not be advanced until abdominal pain as improved or resolved He should have a post episode colonoscopy ID for IV antibiotics and home regimen Adequate analgesia Discharge at the discretion of the hospitalist team Code(s): K57.92 - DVTRCLI OF INTEST, PART UNSP, W/O PERF OR ABSCESS W/O BLEED (2) HLD (hyperlipidemia) Code(s): E78.5 - HYPERLIPIDEMIA, UNSPECIFIED (3) HTN (hypertension) Code(s): I10 - ESSENTIAL (PRIMARY) HYPERTENSION (4) Obesity (BMI 30.0-34.9) Code(s): E66.9 - OBESITY, UNSPECIFIED
--- NOTE | 2018-08-24 14:36 | PN ---
Progress Note, Physician History of Present Illness: patient was given liquids started having pain in the rlq bar tender - Current Medication List Current Medications: Active Medications Acetaminophen (Ofirmev Injection -) 1,000 mg IVPB Q8H PRN PRN Reason: PAIN LEVEL 4 - 6 Last Admin: 08/23/18 14:45 Dose: 1,000 mg Hydralazine HCl (Apresoline Injection -) 10 mg IVPUSH Q6H PRN PRN Reason: HYPERTENSION Piperacillin Sod/Tazobactam (Sod 3.375 gm/ Dextrose) 50 mls @ 100 mls/hr IVPB Q8H-IV TALHA; Protocol Last Admin: 08/24/18 09:58 Dose: 100 mls/hr Sodium Chloride (Normal Saline -) 1,000 mls @ 83 mls/hr IV ASDIR TALHA Last Admin: 08/23/18 00:00 Dose: 83 mls/hr Morphine Sulfate (Morphine Injection -) 1 mg IVPUSH Q6H PRN PRN Reason: PAIN LEVEL 7 - 10 - Objective Vital Signs: Vital Signs Temperature 99.0 F 08/24/18 09:55 Pulse Rate 58 L 08/24/18 09:55 Respiratory Rate 18 08/24/18 09:55 Blood Pressure 132/75 08/24/18 09:55 O2 Sat by Pulse Oximetry (%) 98 08/24/18 09:55 Constitutional: Yes: Calm, Mild Distress, Obese Cardiovascular: Yes: S1, S2 Respiratory: Yes: Regular, CTA Bilaterally Gastrointestinal: Yes: Normal Bowel Sounds, Soft Musculoskeletal: Yes: WNL Extremities: Yes: WNL Neurological: Yes: Alert, Oriented Psychiatric: Yes: Alert, Oriented Labs: CBC, BMP 08/24/18 07:42 08/24/18 07:42 INR, PTT INR 1.18 (0.82-1.09) 08/22/18 11:10 Assessment/Plan Problem List - Problems (1) Acute diverticulitis of intestine Code(s): K57.92 - DVTRCLI OF INTEST, PART UNSP, W/O PERF OR ABSCESS W/O BLEED (2) Obesity (BMI 30.0-34.9) Code(s): E66.9 - OBESITY, UNSPECIFIED (3) HTN (hypertension) Code(s): I10 - ESSENTIAL (PRIMARY) HYPERTENSION (4) HLD (hyperlipidemia) Code(s): E78.5 - HYPERLIPIDEMIA, UNSPECIFIED plan continue abx continue npo monitor tenderness rest as per the team surgery on board
[2018-08-24] MEDS ORDERED: D5-NS + 40 MEQ KCL - 40 MEQ/1,000 ML INFUS.BAG IV SCH (16:15)
[2018-08-25] MEDS: PIPERACILLIN/TAZOB 3.375 GM 3.375 GM in DEXTROSE 5%-WATER - 50 ML IVPB SCH ×3 (02:37→17:45)
[2018-08-25] MEDS ORDERED: PIPERACILLIN/TAZOBACTAM 3.375 GM VIAL IVPB ONE ×3 (02:43→17:23)
[2018-08-25] MEDS ORDERED: DEXTROSE 5%-WATER - 50 ML IVPB ONE ×3 (02:43→17:24)
[2018-08-25] MEDS: ACETAMINOPHEN 1000 MG/100 ML VIAL (NON FORMULARY) IVPB PRN (07:57)
--- NOTE | 2018-08-25 08:11 | PN ---
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 - Current Medication List Current Medications: Active Medications Acetaminophen (Ofirmev Injection -) 1,000 mg IVPB Q8H PRN PRN Reason: PAIN LEVEL 4 - 6 Last Admin: 08/25/18 07:57 Dose: 1,000 mg Hydralazine HCl (Apresoline Injection -) 10 mg IVPUSH Q6H PRN PRN Reason: HYPERTENSION Piperacillin Sod/Tazobactam (Sod 3.375 gm/ Dextrose) 50 mls @ 100 mls/hr IVPB Q8H-IV TALHA; Protocol Last Admin: 08/25/18 02:37 Dose: 100 mls/hr Morphine Sulfate (Morphine Injection -) 1 mg IVPUSH Q6H PRN PRN Reason: PAIN LEVEL 7 - 10 - Objective Vital Signs: Vital Signs Temperature 97.8 F 08/25/18 06:00 Pulse Rate 54 L 08/25/18 06:00 Respiratory Rate 18 08/25/18 06:00 Blood Pressure 138/68 08/25/18 06:00 O2 Sat by Pulse Oximetry (%) 97 08/25/18 06:22 Constitutional: Yes: Calm, Mild Distress Cardiovascular: Yes: Regular Rate and Rhythm Respiratory: Yes: Regular, CTA Bilaterally Gastrointestinal: Yes: Soft, Hypoactive Bowel Sounds, Tenderness, Other ( guarding in llq) Musculoskeletal: Yes: WNL Extremities: Yes: WNL Neurological: Yes: Alert, Oriented Psychiatric: Yes: Alert, Oriented Labs: INR, PTT INR 1.18 (0.82-1.09) 08/22/18 11:10 Assessment/Plan Problem List - Problems (1) Acute diverticulitis of intestine Code(s): K57.92 - DVTRCLI OF INTEST, PART UNSP, W/O PERF OR ABSCESS W/O BLEED (2) Obesity (BMI 30.0-34.9) Code(s): E66.9 - OBESITY, UNSPECIFIED (3) HTN (hypertension) Code(s): I10 - ESSENTIAL (PRIMARY) HYPERTENSION (4) HLD (hyperlipidemia) Code(s): E78.5 - HYPERLIPIDEMIA, UNSPECIFIED plan continue abx slow on advancing still with guarding close watch rest as per the team
[2018-08-25 08:22] LABS: ALBUMIN 3.1 g/dl (3.4-5.0); BILIRUBIN,TOTAL 0.7 mg/dl (0.2-1); CALCIUM 8.3 mg/dl (8.5-10); CREATININE 0.8 mg/dl (0.55-1.3); MAGNESIUM 1.9 mg/dL (1.8-2.4); POTASSIUM 3.3 mmol/L (3.5-5.1)
[2018-08-25 08:39] LABS: BASO % 0.6 % (0-2.0); EOS % 5.3 % (0-4.5); HEMATOCRIT 39.6 % (35.4-49); HEMOGLOBIN 13.3 GM/dl (11.7-16.9); LYMPH % 24.6 % (8-40); MCH 29.2 pg (25.7-33.7); MCHC 33.5 g/dl (32.0-35.9); MONO % 9.9 % (3.8-10.2); NEUT % 59.6 % (42.8-82.8); PLATELET COUNT 252 K/MM3 (134-434); RBC 4.56 M/mm3 (4.00-5.60); RDW 12.4 % (11.9-15.9); WHITE BLOOD COUNT 7.3 K/mm3 (4.0-10.8)
[2018-08-25] MEDS ORDERED: MAGNESIUM SULF 50% (8.12 MEQ/2 ML-1 GM VIAL) IVPB ONE (09:25)
[2018-08-25] MEDS ORDERED: MAGNESIUM 1GM/D5W - 1 GM/100 ML IVPB IVPB ONE (09:45)
--- NOTE | 2018-08-25 10:44 | PN ---
Physical Exam: SUBJECTIVE: Patient seen and examined. Ambulating in hallway. Feels well. Tolerating clears. OBJECTIVE: Vital Signs Period Temp Pulse Resp BP Sys/Schmidt Pulse Ox Last 24 Hr 97.8 F-99.4 F 53-69 16-18 115-164/62-85 95-99 GENERAL: Awake, alert, and fully oriented, in no acute distress. LUNGS: Breath sounds equal, clear to auscultation bilaterally. No wheezes, and no crackles. No accessory muscle use. HEART: Regular rate and rhythm, normal S1 and S2 ABDOMEN: Soft, not tender, not distended, normoactive bowel sounds, no guarding , no rebound tenderness UPPER EXTREMITIES: 2+ pulses, warm, well-perfused. No cyanosis. No clubbing. No peripheral edema. LOWER EXTREMITIES: 2+ pulses, warm, well-perfused. No calf tenderness. No peripheral edema. NEUROLOGICAL: Cranial nerves II-XII intact. Normal speech. Normal gait. Laboratory Results - last 24 hr 08/25/18 08/25/18 05:00 05:00 WBC 7.3 RBC 4.56 Hgb 13.3 Hct 39.6 MCV 87.0 MCH 29.2 MCHC 33.5 RDW 12.4 Plt Count 252 MPV 9.0 Absolute Neuts (auto) 4.4 Neutrophils % 59.6 Lymphocytes % 24.6 D Monocytes % 9.9 Eosinophils % 5.3 H D Basophils % 0.6 Sodium 144 Potassium 3.3 L Chloride 103 Carbon Dioxide 25 Anion Gap 16 BUN 9 Creatinine 0.8 Est GFR (CKD-EPI)AfAm 113.33 Est GFR (CKD-EPI)NonAf 97.78 Random Glucose 85 Calcium 8.3 L Magnesium 1.9 Total Bilirubin 0.7 AST 18 ALT 23 Alkaline Phosphatase 62 Total Protein 6.0 L Albumin 3.1 L Active Medications Generic Name Dose Route Start Last Admin Trade Name Freq PRN Reason Stop Dose Admin Acetaminophen 1,000 mg 08/22/18 19:12 08/25/18 07:57 Ofirmev Injection - IVPB 1,000 mg Q8H PRN Administration PAIN LEVEL 4 - 6 Hydralazine HCl 10 mg 08/23/18 17:09 Apresoline Injection - IVPUSH Q6H PRN HYPERTENSION Piperacillin Sod/Tazobactam 50 mls @ 100 mls/hr 08/22/18 18:00 08/25/18 10:24 Sod 3.375 gm/ Dextrose IVPB 100 mls/hr Q8H-IV TALHA Administration Protocol Magnesium Sulfate/Dextrose 1 gm in 100 mls @ 100 mls/hr 08/25/18 09:45 10:24 Magnesium 1gm/D5w - IVPB 08/25/18 10:44 100 mls/hr ONCE ONE Administration Morphine Sulfate 1 mg 08/22/18 19:12 Morphine Injection - IVPUSH Q6H PRN PAIN LEVEL 7 - 10 Potassium Chloride 40 meq 08/25/18 10:45 K-Dur - PO 08/25/18 16:46 Q6H TALHA ASSESSMENT/PLAN 58 year-old male with a PMH significant for HTN and HLD. Admitted for acute sigmoid diverticulitis with pneumoperitoneum. Acute diverticulitis with pneumoperitoneum --5/6 CTAP: small amount of free air under diaphragm; acute diverticulitis of sigmoid, small air bubbles seen, no abscess seen; hepatomegaly; splenomegaly ; cholelithiasis --afebrile, leukocytosis resolved --continue Zosyn (day #3) --seen and evaluated by surgeon Dr. Clark, patient does not want surgery --advance diet as tolerated Hypertension --tolerating PO, restart valsartan; continue to hold chlorthalidone due to persistent hypokalemia Hyperlipidemia --restart atorvastatin Hypokalemia --improved, replete with PO Hypomagnesemia --replete FEN Fluids: PO intake adequate Electrolytes: replete as indicated Nutrition: advance to full liquids DVT prophylaxis: SCDs, oob, ambulation; subq lovenox Dispo: continues to require inpatient care. Full code. Visit type - Emergency Visit Emergency Visit: Yes ED Registration Date: 08/22/18 Care time: The patient presented to the Emergency Department on the above date and was hospitalized for further evaluation of their emergent condition. - New Patient This patient is new to me today: No - Critical Care Critical Care patient: No
[2018-08-25] MEDS: POTASSIUM CHLORIDE TABS 20 MEQ TABLET.ER (FP) PO SCH ×2 (11:24→17:44)
[2018-08-25] MEDS: VALSARTAN 160 MG TABLET (UD) PO SCH (11:28)
[2018-08-25] MEDS: ENOXAPARIN NA (PORCINE) 40 MG/0.4 ML DISP.SYRIN SQ SCH (11:28)
--- NOTE | 2018-08-25 15:49 | PN ---
Progress Note, Physician Chief Complaint: abdominal pain History of Present Illness: 58yo male PMH obesity, HTN and HLD presented to the ED complaining of lower abdominal pain. He reports that his last BM was this morning although he has been having recent bouts of constipation. His abdominal has improved. He is tolerating clear liquids. - Current Medication List Current Medications: Active Medications Acetaminophen (Ofirmev Injection -) 1,000 mg IVPB Q8H PRN PRN Reason: PAIN LEVEL 4 - 6 Last Admin: 08/25/18 07:57 Dose: 1,000 mg Atorvastatin Calcium (Lipitor -) 20 mg PO HS [facility] Enoxaparin Sodium (Lovenox -) 40 mg SQ DAILY [facility] Last Admin: 08/25/18 11:28 Dose: 40 mg Hydralazine HCl (Apresoline Injection -) 10 mg IVPUSH Q6H PRN PRN Reason: HYPERTENSION Piperacillin Sod/Tazobactam (Sod 3.375 gm/ Dextrose) 50 mls @ 100 mls/hr IVPB Q8H-IV [facility]; Protocol Last Admin: 08/25/18 10:24 Dose: 100 mls/hr Morphine Sulfate (Morphine Injection -) 1 mg IVPUSH Q6H PRN PRN Reason: PAIN LEVEL 7 - 10 Potassium Chloride (K-Dur -) 40 meq PO Q6H [facility] Stop: 08/25/18 16:46 Last Admin: 08/25/18 11:24 Dose: 40 meq Valsartan (Diovan -) 160 mg PO DAILY [facility] Last Admin: 08/25/18 11:28 Dose: 160 mg - Objective Vital Signs: Vital Signs Temperature 98.0 F 08/25/18 14:00 Pulse Rate 58 L 08/25/18 14:00 Respiratory Rate 18 08/25/18 14:00 Blood Pressure 131/77 08/25/18 14:00 O2 Sat by Pulse Oximetry (%) 97 08/25/18 14:00 Vital Signs Period Temp Pulse Resp BP Sys/Schmidt Pulse Ox Last 24 Hr 97.8 F-99.4 F 53-69 16-18 115-164/62-85 95-98 Constitutional: Yes: Well Nourished, No Distress, Calm Eyes: Yes: Conjunctiva Clear, EOM Intact HENT: Yes: Atraumatic, Normocephalic Neck: Yes: Supple, Trachea Midline Cardiovascular: Yes: Regular Rate and Rhythm, S1, S2 Respiratory: Yes: Regular, CTA Bilaterally Gastrointestinal: Yes: Normal Bowel Sounds, Soft, Abdomen, Obese, Tenderness ...Rectal Exam: Yes: Deferred Genitourinary: No: CVA Tenderness - Left, CVA Tenderness - Right Breast(s): No: Discharge from Nipple, Skin Changes Musculoskeletal: No: Muscle Pain, Muscle Weakness Extremities: No: Cool, Cyanosis Edema: No Peripheral Pulses WNL: Yes Peripheral Pulses: Left Radial: 2+, Right Radial: 2+, Left Doralis Pedis: 2+, Right Dorsalis Pedis: 2+, Left Femoral: 2+, Right Femoral: 2+ Neurological: Yes: Alert, Oriented Psychiatric: Yes: Alert, Oriented Labs: CBC, BMP 08/25/18 05:00 08/25/18 05:00 INR, PTT INR 1.18 (0.82-1.09) 08/22/18 11:10 Problem List - Problems (1) Acute diverticulitis of intestine Assessment/Plan: 58 yo male with his first epidsode of acute diverticulits requiring hospitalization. He does not require emergency surgical intervention. His abdominal pain has improved since he was assessed in the ED. NPO and IVF hydration Clear liquids should not be advanced until abdominal pain as improved or resolved He should have a post episode colonoscopy ID for IV antibiotics and home regimen Adequate analgesia Discharge at the discretion of the hospitalist team Code(s): K57.92 - DVTRCLI OF INTEST, PART UNSP, W/O PERF OR ABSCESS W/O BLEED (2) HLD (hyperlipidemia) Code(s): E78.5 - HYPERLIPIDEMIA, UNSPECIFIED (3) HTN (hypertension) Code(s): I10 - ESSENTIAL (PRIMARY) HYPERTENSION (4) Obesity (BMI 30.0-34.9) Code(s): E66.9 - OBESITY, UNSPECIFIED
[2018-08-25] MEDS ORDERED: ATORVASTATIN CA 20 MG TABLET (FP) PO SCH (22:00)
[2018-08-26] MEDS ORDERED: DEXTROSE 5%-WATER - 50 ML IVPB ONE ×2 (01:18→09:48)
[2018-08-26] MEDS ORDERED: PIPERACILLIN/TAZOBACTAM 3.375 GM VIAL IVPB ONE ×2 (01:18→09:47)
[2018-08-26] MEDS: PIPERACILLIN/TAZOB 3.375 GM 3.375 GM in DEXTROSE 5%-WATER - 50 ML IVPB SCH ×2 (01:51→09:56)
[2018-08-26] MEDS ORDERED: ACETAMINOPHEN INJECTION 100 ML IVPB ONE (02:07)
[2018-08-26] MEDS: ACETAMINOPHEN 1000 MG/100 ML VIAL (NON FORMULARY) IVPB PRN (02:09)
[2018-08-26 06:43] VITALS: TEMP 98.3
--- NOTE | 2018-08-26 08:12 | PN ---
Progress Note, Physician - Current Medication List Current Medications: Active Medications Acetaminophen (Ofirmev Injection -) 1,000 mg IVPB Q8H PRN PRN Reason: PAIN LEVEL 4 - 6 Last Admin: 08/26/18 02:09 Dose: 1,000 mg Atorvastatin Calcium (Lipitor -) 20 mg PO HS [facility] Last Admin: 08/25/18 21:24 Dose: 20 mg Enoxaparin Sodium (Lovenox -) 40 mg SQ DAILY [facility] Last Admin: 08/25/18 11:28 Dose: 40 mg Hydralazine HCl (Apresoline Injection -) 10 mg IVPUSH Q6H PRN PRN Reason: HYPERTENSION Piperacillin Sod/Tazobactam (Sod 3.375 gm/ Dextrose) 50 mls @ 100 mls/hr IVPB Q8H-IV [facility]; Protocol Last Admin: 08/26/18 01:51 Dose: 100 mls/hr Valsartan (Diovan -) 160 mg PO DAILY [facility] Last Admin: 08/25/18 11:28 Dose: 160 mg - Objective Vital Signs: Vital Signs Temperature 98.3 F 08/26/18 06:00 Pulse Rate 55 L 08/26/18 06:00 Respiratory Rate 08/26/18 06:00 Blood Pressure 143/77 08/26/18 06:00 O2 Sat by Pulse Oximetry (%) 98 08/26/18 06:42 Labs: CBC, BMP 08/25/18 05:00 08/25/18 05:00 INR, PTT INR 1.18 (0.82-1.09) 08/22/18 11:10 Problem List - Problems (1) Acute diverticulitis of intestine Code(s): K57.92 - DVTRCLI OF INTEST, PART UNSP, W/O PERF OR ABSCESS W/O BLEED (2) HLD (hyperlipidemia) Code(s): E78.5 - HYPERLIPIDEMIA, UNSPECIFIED (3) HTN (hypertension) Code(s): I10 - ESSENTIAL (PRIMARY) HYPERTENSION (4) Obesity (BMI 30.0-34.9) Code(s): E66.9 - OBESITY, UNSPECIFIED
[2018-08-26 09:37] VITALS: BP 134/68; PULSE 62
[2018-08-26] MEDS: ENOXAPARIN NA (PORCINE) 40 MG/0.4 ML DISP.SYRIN SQ SCH (09:56)
[2018-08-26] MEDS: VALSARTAN 160 MG TABLET (UD) PO SCH (09:56)
--- NOTE | 2018-08-26 10:29 | DS ---
Physical Exam: SUBJECTIVE: Patient seen and examined. Feels well. No pain. Tolerating soft diet. OBJECTIVE: Vital Signs Period Temp Pulse Resp BP Sys/Schmidt Pulse Ox Last 24 Hr 98.0 F-98.6 F 55-66 18-19 131-143/68-77 96-99 PHYSICAL EXAM GENERAL: Awake, alert, and fully oriented, in no acute distress. LUNGS: Breath sounds equal, clear to auscultation bilaterally. No wheezes, and no crackles. No accessory muscle use. HEART: Regular rate and rhythm, normal S1 and S2 ABDOMEN: Soft, not tender, not distended, normoactive bowel sounds, no guarding , no rebound tenderness UPPER EXTREMITIES: 2+ pulses, warm, well-perfused. No cyanosis. No clubbing. No peripheral edema. LOWER EXTREMITIES: 2+ pulses, warm, well-perfused. No calf tenderness. No peripheral edema. NEUROLOGICAL: Cranial nerves II-XII intact. Normal speech. Normal gait. LABS CBCD WBC 7.3 K/mm3 (4.0-10.8) 08/25/18 05:00 RBC 4.56 M/mm3 (4.00-5.60) 08/25/18 05:00 Hgb 13.3 GM/dl (11.7-16.9) 08/25/18 05:00 Hct 39.6 % (35.4-49) 08/25/18 05:00 MCV 87.0 fl (80-96) 08/25/18 05:00 MCHC 33.5 g/dl (32.0-35.9) 08/25/18 05:00 RDW 12.4 % (11.9-15.9) 08/25/18 05:00 Plt Count 252 K/MM3 (134-434) 08/25/18 05:00 MPV 9.0 fl (7.5-11.1) 08/25/18 05:00 CMP Sodium 144 mmol/L (136-145) 08/25/18 05:00 Potassium 3.3 mmol/L (3.5-5.1) L 08/25/18 05:00 Chloride 103 mmol/L (98-107) 08/25/18 05:00 Carbon Dioxide 25 mmol/L (21-32) 08/25/18 05:00 Anion Gap 16 MMOL/L (8-16) 08/25/18 05:00 BUN 9 mg/dl (7-18) 08/25/18 05:00 Creatinine 0.8 mg/dl (0.55-1.3) 08/25/18 05:00 Creat Clearance w eGFR 76.48 (>60) 08/24/18 07:42 Calcium 8.3 mg/dl (8.5-10) L 08/25/18 05:00 Total Bilirubin 0.7 mg/dl (0.2-1) 08/25/18 05:00 AST 18 U/L (15-37) 08/25/18 05:00 ALT 23 U/L (13-61) 08/25/18 05:00 Alkaline Phosphatase 62 U/L (45-117) 08/25/18 05:00 Total Protein 6.0 g/dl (6.4-8.2) L 08/25/18 05:00 Albumin 3.1 g/dl (3.4-5.0) L 08/25/18 05:00 HOSPITAL COURSE: Date of Admission:08/22/18 Date of Discharge: 08/26/18 Pre hospital course 58 year-old male with a PMH significant for HTN and HLD, who presents to the ED with lower abdominal pain, sweats, and chills x 24 hours. The onset of pain was gradual. He ate very little yesterday and the pain was tolerable. Today he felt thirsty and drank a large glass of water. The pain became acutely worse, he fell to his hands and knees the pain was so severe. He drove himself to the ED. Patient recalls feeling similar abdominal pain about 3 weeks ago. The pain went away and he did not seek medical attention at the time. Patient reports being constipated for the past 10 days and he has been straining to have bowel movements. His stools have been brown, well-formed, no diarrhea. Last colonoscopy was a number of years ago. ED course (1) WBC 13.7k (2) K 2.9 (3) Total bili 1.6 (4) CTAP: pneumoperitoneum; acute diverticulitis of sigmoid; no abscess seen Subsequent hospital course 58 year-old male with a PMH significant for HTN and HLD. Admitted for acute sigmoid diverticulitis with pneumoperitoneum. Acute diverticulitis with pneumoperitoneum --/6 CTAP: small amount of free air under diaphragm; acute diverticulitis of sigmoid, small air bubbles seen, no abscess seen; hepatomegaly; splenomegaly ; cholelithiasis --leukocytosis on admission, trended to wnl --treated with Zosyn continue Zosyn x 4 days; discharged on augmentin to complete 14 total days treatment; discussed with PCP Dr. Sheridan --seen and evaluated by surgeon Dr. Clark, patient did not want surgery --diet was advanced as tolerated Persistent hypokalemia --three successive days of potassium 2.9 in spite of aggressive repletion; held chlorthalidone; recommend outpatient review of continued thiazide diuretic Hypertension --resumed home valsartan when tolerated PO Hyperlipidemia --resumed home atorvastatin when tolerated PO Hypomagnesemia --repleted Minutes to complete discharge: 35 Discharge Summary Reason For Visit: DIVERTICULITIS OF LARGE INTESTINE Current Active Problems Acute diverticulitis of intestine (Acute) HLD (hyperlipidemia) (Acute) HTN (hypertension) (Acute) Obesity (BMI 30.0-34.9) (Acute) Condition: Improved - Instructions Diet, Activity, Other Instructions: A prescription has been sent to your pharmacy for augmentin which is an antibiotic. Take this medication as prescribed and be sure to finish all the medication. You should follow up with your primary care provider at your earliest opportunity. Return to the emergency department for any new or worsening symptoms. Referrals: Yudy Sheridan MD [Primary Care Provider] - Disposition: HOME - Home Medications Comprehensive Discharge Medication List: Ambulatory Orders Atorvastatin Ca [Lipitor] 20 mg PO HS 08/22/18 Valsartan [Diovan] 160 mg PO DAILY 08/22/18 Amoxicillin/Potassium Clav [Augmentin 875-125 Tablet] 1 each PO BID #20 tablet 08/26/18 This patient is new to me today: No Emergency Visit: Yes ED Registration Date: 08/22/18 Care time: The patient presented to the Emergency Department on the above date and was hospitalized for further evaluation of their emergent condition. Critical Care patient: No - Discharge Referral Referred to [facility] Med P.C.: No
== END 2018-08-26 11:27 | disposition home or self-care (01) | DRG 392 ==
LOC: FER 10:50 → FM/S 14:21
PROVIDERS: ADMIT Internal Medicine; ATTEND Nurse Practitioner Acute Care
DX: K57.20 Diverticulitis of large intestine with perforation and abscess without bleeding (principal); I10 Essential (primary) hypertension; E78.5 Hyperlipidemia, unspecified; Z87.891 Personal history of nicotine dependence; E83.42 Hypomagnesemia; E87.6 Hypokalemia; E66.9 Obesity, unspecified; K57.92 Diverticulitis of intestine, part unspecified, without perforation or abscess without bleeding; R19.7 Diarrhea, unspecified; Z68.31 Body mass index [BMI] 31.0-31.9, adult; K66.8 Other specified disorders of peritoneum
CPT/HCPCS: 36415; 71046-TC-FY; 74177-TC; 80048; 80053; 81003; 81015; 83605; 83690; 83735; 85025; 85610; 86850; 86900; 86901; 87040; 87086; 93005; 99283-25; J0131; J7030